=== PATIENT | female | born 1995 | race Caucasian/White ===

== ENCOUNTER 2021-05-13 06:57 | Outpatient (CLI) | payer MEDICAID | END 2021-05-13 06:58 | disposition critical access hospital (66) | LOC: EMS 06:57 | DX: R11.2 Nausea with vomiting, unspecified (principal) | CPT/HCPCS: A0425; A0427; A0999 ==

== ENCOUNTER 2021-05-13 07:17 | Emergency (ER) | payer MEDICAID ==
[2021-05-13] MEDS ORDERED: DROPERIDOL 5 MG/2 ML VIAL IVP STA (07:33)
[2021-05-13] MEDS ORDERED: SODIUM CHLORIDE 0.9% 1,000 ML IV STA ×2 (07:33→07:34)
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
[2021-05-13 08:08] LABS: ALBUMIN 3.4 g/dL (3.2-5.5); ALBUMIN/GLOBULIN RATIO 0.9 (1.0-2.2); BASOPHILS # (AUTO) 0.1 10^3/uL (0.0-0.1); BASOPHILS % (AUTO) 0.8 %; BILIRUBIN,TOTAL 0.4 mg/dL (0.2-1.0); CALCIUM 8.9 mg/dL (8.5-10.3); CREATININE 0.6 mg/dL (0.4-1.0); EOSINOPHILS # (AUTO) 0.1 10^3/uL (0.0-0.7); EOSINOPHILS % (AUTO) 0.6 %; HCT - HEMATOCRIT 33.9 % (37.0-47.0); HGB - HEMOGLOBIN 10.7 g/dL (12.0-16.0); LYMPHOCYTES # (AUTO) 2.7 10^3/uL (1.5-3.5); LYMPHOCYTES % (AUTO) 32.4 %; MEAN CORPUSCULAR HEMOGLOBIN 25.7 pg (27.0-31.0); MEAN CORPUSCULAR HGB CONC 31.6 g/dL (32.0-36.0); MEAN CORPUSCULAR VOLUME 81.5 fL (81.0-99.0); MEAN PLATELET VOLUME 9.9 fL (7.9-10.8); MONOCYTES # (AUTO) 0.5 10^3/uL (0.0-1.0); MONOCYTES % (AUTO) 5.9 %; NEUTROPHILS % (AUTO) 59.4 %; PLT - PLATELET COUNT 266 10^3/uL (130-450); POTASSIUM 3.7 mmol/L (3.5-5.0); RED BLOOD COUNT 4.16 10^6/uL (4.20-5.40); TOTAL PROTEIN 7.3 g/dL (6.7-8.2); WHITE BLOOD COUNT 8.5 x10^3/uL (4.8-10.8)
[2021-05-13 08:30] LABS: HCG,QUALITATIVE BLOOD NEGATIVE
[2021-05-13 11:02] VITALS: BP 99/60
[2021-05-13] MEDS ORDERED: PROMETHAZINE 25 MG/1 ML VIAL IM STA (11:15)
[2021-05-13 11:21] LABS: BILIRUBIN,URINE NEGATIVE (NEGATIVE); GLUCOSE, URINE (UA) NEGATIVE (NEGATIVE); KETONES,URINE (UA) NEGATIVE (NEGATIVE); LEUKOCYTE ESTERASE, URINE TRACE (NEGATIVE); NITRITE,URINE NEGATIVE (NEGATIVE); OCCULT BLOOD,URINE NEGATIVE (NEGATIVE); PROTEIN,URINE NEGATIVE (NEGATIVE); UROBILINOGEN,URINE 0.2 (NORMAL) E.U./dL (NORMAL)
[2021-05-13 11:28] LABS: CLARITY,URINE SL. CLOUDY (CLEAR)
[2021-05-13 11:32] LABS: BACTERIA,URINE Many /HPF (None Seen); CRYSTALS,URINE 0-2 Calcium Oxalate /LPF; RBC,URINE 0-5 /HPF (0-5); SQUAMOUS EPITHELIAL CELL,UR MANY Squamous (<= Few)
== END 2021-05-13 12:20 | disposition home or self-care (01) ==
LOC: ED 07:17
DX: F11.13 Opioid abuse with withdrawal (principal); R11.2 Nausea with vomiting, unspecified; R19.7 Diarrhea, unspecified
CPT/HCPCS: 36415; 80053; 81001; 81003; 83690; 84703; 85025; 87086; 96361; 96374; 99283

== ENCOUNTER 2021-05-13 16:31 | Outpatient (CLI) | payer MEDICAID | END 2021-05-13 16:32 | disposition EMS.NT | LOC: EMS 16:31 | DX: R11.2 Nausea with vomiting, unspecified (principal) ==